=== PATIENT | female | born 1985 | race Caucasian/White ===

== ENCOUNTER 2019-04-21 15:13 | Emergency (ER) | payer OTHER, MEDICAID ==
[2019-04-21] MEDS ORDERED: Sodium Chloride 0.9% 1,000 ML IV ONE (16:00)
--- NOTE | 2019-04-21 16:03 | EDM.PDOC ---
ED HPI GENERAL MEDICAL PROBLEM - General Chief Complaint: Gastrointestinal Problem Stated Complaint: VOMITING/FEELING RUNDOWN Time Seen by Provider: 04/21/19 15:31 Source of Information: Reports: Patient History Limitations: Reports: No Limitations - History of Present Illness INITIAL COMMENTS - FREE TEXT/NARRATIVE: HISTORY AND PHYSICAL: History of present illness: Patient is a 33-year-old female who presents to the ED today with concern of vomiting and diarrhea over the past 1 week. Patient states that the vomiting is not consistent and she has not thrown up today but seems to be every other day that she will throw up. Patient states she has had about 6 episodes of a small amount of watery diarrhea daily over the past 1 week. Patient denies any recent antibiotic use. Patient states she does have a history of opioid abuse but has been clean for quite some time. She states that she was with the Suboxone program but recently just stopped this 1 month ago and has been sober since. Patient states she also quit drinking alcohol 1 month ago. Patient denies any abdominal pain or any other symptoms or concerns. Patient denies fever, chills, chest pain, shortness of breath, or cough. Denies headache, neck stiff ness, change in vision, syncope, or near syncope. Denies nausea, abdominal pain, or dysuria. Has not noted any blood in urine or stool. Patient has been eating and drinking appropriately. Review of systems: As per history of present illness and below otherwise all systems reviewed and negative. Past medical history: As per history of present illness and as reviewed below otherwise noncontributory. Surgical history: As per history of present illness and as reviewed below otherwise noncontributory. Social history: See social history for further information Family history: As per history of present illness and as reviewed below otherwise noncontributory. Physical exam: General: Patient is alert, oriented, and in no acute distress. Patient sitting comfortably on exam table. HEENT: Atraumatic, normocephalic, pupils equal and reactive bilaterally, negative for conjunctival pallor or scleral icterus, mucous membranes moist, TMs normal bilaterally, throat clear, neck supple, nontender, trachea midline. No drooling or trismus noted. No meningeal signs. No hot potato voice noted. Lungs: Clear to auscultation, breath sounds equal bilaterally, chest nontender. Heart: S1S2, regular rate and rhythm without overt murmur Abdomen: Soft, nondistended, nontender. Negative for masses or hepatosplenomegaly. Negative for costovertebral tenderness. Pelvis: Stable nontender. Genitourinary: Deferred. Rectal: Deferred. Skin: Intact, warm, dry. No lesions or rashes noted. Extremities: Atraumatic, negative for cords or calf pain. Neurovascular unremarkable. Neuro: Awake, alert, oriented. Cranial nerves II through XII unremarkable. Cerebellum unremarkable. Motor and sensory unremarkable throughout. Exam nonfocal. Notes: Patient has not had any episodes of vomiting in the ED today. Patient able to tolerate p.o. intake in the ED without vomiting. Patient was unable to leave a stool sample today in the ED. Stool collection supplies have been provided to her to provide at home and return to our lab. Voices understanding and is agreeable to plan of care. Denies any further questions or concerns at this time. Diagnostics: CBC, CMP, UA, Uhcg, Lipase, Stool culture/shiga/campy, Ova and parasite, Cdiff Therapeutics: NS Prescription: Stool studies Impression: H/O vomiting H/O diarrhea Plan: 1. Stool collection supplies have been provided to you. Once you are able to leave a sample at home, return this to our lab. 2. Encourage small but frequent sips of fluid to prevent dehydration. 3. Follow-up with a primary care provider as discussed. Return to the ED as needed and as discussed. Definitive disposition and diagnosis as appropriate pending reevaluation and review of above. left flank pain Pain Score (Numeric/FACES): 2 - Related Data Allergies Allergy/AdvReac Type Severity Reaction Status Date / Time No Known Allergies Allergy Verified 04/21/19 15:26 Home Meds: Home Meds Dextroamphetamine/Amphetamine [Adderall] 45 mg PO DAILY 04/21/19 [History] QUEtiapine [SEROquel] 50 mg PO BEDTIME 04/21/19 [History] Past Medical History Psychiatric History: Reports: Anxiety, Depression, Other (See Below) Other Psychiatric History: Reccovering Opiod addict, 30 days clean. had been clean for 3 years and had relapse - Infectious Disease History Infectious Disease History: Reports: Chicken Pox Social & Family History - Family History Family Medical History: Noncontributory - Tobacco Use Smoking Status *Q: Current Every Day Smoker Years of Tobacco use: 18 Packs/Tins Daily: 0.1 - Recreational Drug Use Recreational Drug Use: No ED ROS GENERAL - Review of Systems Review Of Systems: Comprehensive ROS is negative, except as noted in HPI. ED EXAM, GENERAL - Physical Exam Exam: See Below (see dictation) Course - Vital Signs Last Recorded V/S: Last Vital Signs Temp 97.5 F 04/21/19 15:23 Pulse 116 H 04/21/19 15:23 Resp 18 04/21/19 15:23 BP 120/89 04/21/19 15:23 Pulse Ox 98 04/21/19 15:23 - Orders/Labs/Meds Orders: Active Orders 24 hr Category Date Time Status C DIFFICILE AG/TOXIN W/REFLEX [RM] Stat Lab 04/21/19 15:38 Ordered OVA & PARASITES BY IMMUNOASSAY [MREF] Stat Lab 04/21/19 15:38 Ordered STOOL CULTURE/SHIGA TOXIN [MREF] Stat Lab 04/21/19 15:38 Ordered Labs: Laboratory Tests 04/21/19 04/21/19 04/21/19 Range/Units 15:45 15:45 16:19 WBC 11.23 H (4.0-11.0) K/uL RBC 4.67 (4.30-5.90) M/uL Hgb 14.6 (12.0-16.0) g/dL Hct 41.6 (36.0-46.0) % MCV 89.1 (80.0-98.0) fL MCH 31.3 (27.0-32.0) pg MCHC 35.1 (31.0-37.0) g/dL RDW Std Deviation 37.3 (28.0-62.0) fl RDW Coeff of Alejandro 12 (11.0-15.0) % Plt Count 242 (150-400) K/uL MPV 10.90 (7.40-12.00) fL Neut % (Auto) 57.7 (48.0-80.0) % Lymph % (Auto) 34.5 (16.0-40.0) % Clayton % (Auto) 6.3 (0.0-15.0) % Eos % (Auto) 1.3 (0.0-7.0) % Baso % (Auto) 0.2 (0.0-1.5) % Neut # (Auto) 6.5 H (1.4-5.7) K/uL Lymph # (Auto) 3.9 H (0.6-2.4) K/uL Clayton # (Auto) 0.7 (0.0-0.8) K/uL Eos # (Auto) 0.2 (0.0-0.7) K/uL Baso # (Auto) 0.0 (0.0-0.1) K/uL Sodium (136-145) mmol/L Potassium (3.5-5.1) mmol/L Chloride (98-107) mmol/L Carbon Dioxide (21.0-32.0) mmol/L BUN (7.0-18.0) mg/dL Creatinine (0.6-1.0) mg/dL Est Cr Clr Drug Dosing mL/min Estimated GFR (MDRD) ml/min Glucose (74-106) mg/dL Calcium (8.5-10.1) mg/dL Total Bilirubin (0.2-1.0) mg/dL AST (15-37) IU/L ALT (14-63) IU/L Alkaline Phosphatase (46-116) U/L Total Protein (6.4-8.2) g/dL Albumin (3.4-5.0) g/dL Globulin (2.6-4.0) g/dL Albumin/Globulin Ratio (0.9-1.6) Lipase (73-393) U/L Urine Color YELLOW Urine Appearance CLEAR Urine pH 6.0 (5.0-8.0) Ur Specific Lamont >= 1.030 (1.001-1.035) Urine Protein NEGATIVE (NEGATIVE) mg/dL Urine Glucose (UA) NEGATIVE (NEGATIVE) mg/dL Urine Ketones NEGATIVE (NEGATIVE) mg/dL Urine Occult Blood NEGATIVE (NEGATIVE) Urine Nitrite NEGATIVE (NEGATIVE) Urine Bilirubin NEGATIVE (NEGATIVE) Urine Urobilinogen 0.2 (<2.0) EU/dL Ur Leukocyte Esterase NEGATIVE (NEGATIVE) Urine HCG, Qual NEGATIVE (NEGATIVE) 04/21/19 Range/Units 16:19 WBC (4.0-11.0) K/uL RBC (4.30-5.90) M/uL Hgb (12.0-16.0) g/dL Hct (36.0-46.0) % MCV (80.0-98.0) fL MCH (27.0-32.0) pg MCHC (31.0-37.0) g/dL RDW Std Deviation (28.0-62.0) fl RDW Coeff of Alejandro (11.0-15.0) % Plt Count (150-400) K/uL MPV (7.40-12.00) fL Neut % (Auto) (48.0-80.0) % Lymph % (Auto) (16.0-40.0) % Clayton % (Auto) (0.0-15.0) % Eos % (Auto) (0.0-7.0) % Baso % (Auto) (0.0-1.5) % Neut # (Auto) (1.4-5.7) K/uL Lymph # (Auto) (0.6-2.4) K/uL Clayton # (Auto) (0.0-0.8) K/uL Eos # (Auto) (0.0-0.7) K/uL Baso # (Auto) (0.0-0.1) K/uL Sodium 142 (136-145) mmol/L Potassium 3.6 (3.5-5.1) mmol/L Chloride 102 (98-107) mmol/L Carbon Dioxide 27.4 (21.0-32.0) mmol/L BUN 11 (7.0-18.0) mg/dL Creatinine 0.8 (0.6-1.0) mg/dL Est Cr Clr Drug Dosing 85.56 mL/min Estimated GFR (MDRD) > 60.0 ml/min Glucose 96 (74-106) mg/dL Calcium 10.2 H (8.5-10.1) mg/dL Total Bilirubin 0.3 (0.2-1.0) mg/dL AST 14 L (15-37) IU/L ALT 23 (14-63) IU/L Alkaline Phosphatase 60 (46-116) U/L Total Protein 8.1 (6.4-8.2) g/dL Albumin 4.0 (3.4-5.0) g/dL Globulin 4.1 H (2.6-4.0) g/dL Albumin/Globulin Ratio 1.0 (0.9-1.6) Lipase 256 (73-393) U/L Urine Color Urine Appearance Urine pH (5.0-8.0) Ur Specific Lamont (1.001-1.035) Urine Protein (NEGATIVE) mg/dL Urine Glucose (UA) (NEGATIVE) mg/dL Urine Ketones (NEGATIVE) mg/dL Urine Occult Blood (NEGATIVE) Urine Nitrite (NEGATIVE) Urine Bilirubin (NEGATIVE) Urine Urobilinogen (<2.0) EU/dL Ur Leukocyte Esterase (NEGATIVE) Urine HCG, Qual (NEGATIVE) Meds: Medications Discontinued Medications Generic Name Dose Route Start Last Admin Trade Name Freq PRN Reason Stop Dose Admin Sodium Chloride 1,000 mls @ 999 mls/hr 04/21/19 16:00 04/21/19 16:21 Normal Saline IV 04/21/19 17:00 999 mls/hr STAT ONE Administration Ondansetron HCl 4 mg 04/21/19 16:00 04/21/19 16:50 Zofran IVPUSH 04/21/19 16:01 Not Given ONETIME ONE Departure - Departure Time of Disposition: 17:13 Disposition: Home, Self-Care 01 Clinical Impression: History of vomiting, History of diarrhea - Discharge Information Referrals: Raine Funk, ESTHETICIAN/SPA COORDINATOR [Primary Care Provider] - Forms: ED Department Discharge Additional Instructions: The following information is given to patients seen in the emergency department who are being discharged to home. This information is to outline your options for follow-up care. We provide all patients seen in our emergency department with a follow-up referral. The need for follow-up, as well as the timing and circumstances, are variable depending upon the specifics of your emergency department visit. If you don't have a primary care physician on staff, we will provide you with a referral. We always advise you to contact your personal physician following an emergency department visit to inform them of the circumstance of the visit and for follow-up with them and/or the need for any referrals to a consulting specialist. The emergency department will also refer you to a specialist when appropriate. This referral assures that you have the opportunity for follow-up care with a specialist. All of these measure are taken in an effort to provide you with optimal care, which includes your follow-up. Under all circumstances we always encourage you to contact your private physician who remains a resource for coordinating your care. When calling for follow-up care, please make the office aware that this follow-up is from your recent emergency room visit. If for any reason you are refused follow-up, please contact the [facility] Emergency Department at and asked to speak to the emergency department charge nurse. [facility] [address] [place] [address] [facility] [address] [place] [address] 1. Stool collection supplies have been provided to you. Once you are able to leave a sample at home, return this to our lab. 2. Encourage small but frequent sips of fluid to prevent dehydration. 3. Follow-up with a primary care provider as discussed. Return to the ED as needed and as discussed. Sepsis Event Note - Evaluation Sepsis Screening Result: No Definite Risk - Focused Exam Vital Signs: Vital Signs Temp Pulse Resp BP Pulse Ox 04/21/19 15:23 97.5 F 116 H 18 120/89 98 Date Exam was Performed: 04/21/19 Time Exam was Performed: 17:11 - My Orders Last 24 Hours: My Active Orders 04/21/19 15:38 C DIFFICILE AG/TOXIN W/REFLEX [RM] Stat OVA & PARASITES BY IMMUNOASSAY [MREF] Stat STOOL CULTURE/SHIGA TOXIN [MREF] Stat - Assessment/Plan Last 24 Hours: My Active Orders 04/21/19 15:38 C DIFFICILE AG/TOXIN W/REFLEX [RM] Stat OVA & PARASITES BY IMMUNOASSAY [MREF] Stat STOOL CULTURE/SHIGA TOXIN [MREF] Stat
[2019-04-21] MEDS: Ondansetron 4 MG/2 ML SDV IVPUSH ONE ×2 (16:21→16:50)
[2019-04-21 17:04] LABS: BLOOD UREA NITROGEN,BUN 11 mg/dL (7.0-18.0); CARBON DIOXIDE,CO2 27.4 mmol/L (21.0-32.0); CHLORIDE,CL 102 mmol/L (98-107); GLUCOSE RANDOM 96 mg/dL (74-106); LIPASE 256 U/L (73-393); POTASSIUM,K 3.6 mmol/L (3.5-5.1); SODIUM,NA 142 mmol/L (136-145)
== END 2019-04-21 17:25 | disposition home or self-care (01) ==
LOC: MW.ED 15:13
DX: R11.10 Vomiting, unspecified (principal); R19.7 Diarrhea, unspecified; F32.9 Major depressive disorder, single episode, unspecified; F17.210 Nicotine dependence, cigarettes, uncomplicated; Z79.899 Other long term (current) drug therapy
CPT/HCPCS: 36415; 80053; 81003; 81025; 83690; 85025; 96360; 99284; J7030; 99283; J2405

== ENCOUNTER 2021-03-24 19:53 | Inpatient (IN) | payer OTHER ==
[2021-03-24] MEDS ORDERED: Water For Irrigation,Sterile 1,000 ML Container IRR PRN (20:29)
[2021-03-24] MEDS ORDERED: Misoprostol 200 MCG Tab PO PRN (20:29)
[2021-03-24] MEDS ORDERED: Nalbuphine 10 MG/1 ML Vial IVPUSH PRN (20:29)
[2021-03-24] MEDS ORDERED: Lidocaine 1% 50 ML MDV INJECT PRN (20:29)
[2021-03-24] MEDS ORDERED: Misoprostol 25 MCG (1/4 of 100 MCG) Tab VAG PRN ×2 (20:29)
[2021-03-24] MEDS ORDERED: Sodium Chloride 0.9% 10 ML Syringe FLUSH PRN (20:29)
[2021-03-24] MEDS ORDERED: Ondansetron 4 MG/2 ML SDV IVPUSH PRN (20:29)
[2021-03-24] MEDS ORDERED: Terbutaline 1 MG/ML SDV SUBCUT PRN (20:29)
[2021-03-24] MEDS ORDERED: Carboprost Tromethamine 250 MCG/1 ML Amp IM PRN (20:29)
[2021-03-24] MEDS ORDERED: Tranexamic Acid 1,000 MG in Sodium Chloride 0.9% 100 ML IV PRN (20:29)
[2021-03-24] MEDS ORDERED: Sodium Chloride 0.9% 20 ML SDV IV PRN (20:29)
[2021-03-24] MEDS ORDERED: Butorphanol 1 MG/ML SDV IVPUSH PRN (20:29)
[2021-03-24] MEDS ORDERED: Methylergonovine 0.2 MG/1 ML Amp IM PRN (20:29)
[2021-03-24] MEDS ORDERED: Oxytocin/0.9 % Sodium Chloride 30 UNIT/500 ML BAG IV SCH (20:30)
[2021-03-25] MEDS: Acetaminophen 325 MG Tab PO PRN ×2 (00:35→04:40)
[2021-03-25] MEDS: Lactated Ringers 1,000 ML IV SCH ×5 (01:18→23:10)
[2021-03-25] MEDS ORDERED: hydrOXYzine HCl 25 MG Tab PO STA (03:51)
[2021-03-25] MEDS ORDERED: Oxytocin/0.9 % Sodium Chloride 30 UNIT/500 ML BAG IV SCH (09:00)
[2021-03-25] MEDS ORDERED: Ropivacaine HCl/PF 100 ML ONE (09:45)
[2021-03-25] MEDS ORDERED: ePHEDrine 50 MG/ML SDV IVPUSH PRN ×2 (10:01)
[2021-03-25] MEDS: Ropivacaine HCl/PF 200 MG in Premix Bag 1 BAG EPIDUR SCH ×2 (16:28→22:54)
[2021-03-26] MEDS ORDERED: hydrOXYzine Pamoate 25 MG Cap PO ONE (02:43)
[2021-03-26] MEDS ORDERED: hydrOXYzine Pamoate 25 MG Cap ONE (02:44)
[2021-03-26] MEDS ORDERED: Witch Hazel Medicated Pads 40/Jar TOP PRN (02:56)
[2021-03-26] MEDS ORDERED: oxyCODONE 5 MG Tab PO PRN (02:56)
[2021-03-26] MEDS ORDERED: Ibuprofen 400 MG Tab PO PRN (02:56)
[2021-03-26] MEDS ORDERED: Benzocaine/Menthol 20%-0.5% Spray 78 GM Cannister TOP PRN (02:56)
[2021-03-26] MEDS ORDERED: Acetaminophen 500 MG Tab PO PRN (02:56)
[2021-03-26] MEDS ORDERED: Bisacodyl 10 MG Supp RECTAL PRN (02:56)
[2021-03-26] MEDS: Docusate Sodium 100 MG Cap PO PRN ×3 (03:27→20:54)
[2021-03-26] MEDS: Ibuprofen 800 MG Tab PO PRN ×3 (03:28→15:17)
[2021-03-26] MEDS: Lanolin 100% Cream 7 GM Tube TOP PRN ×2 (03:30→16:29)
[2021-03-26] MEDS ORDERED: Polyethylene Glycol 3350 Powder 17 GM Packet PO PRN (10:42)
[2021-03-26] MEDS: Acetaminophen 500 MG Tab PO PRN ×2 (14:29→18:34)
[2021-03-27] MEDS: Ibuprofen 800 MG Tab PO PRN (04:49)
[2021-03-27] MEDS: Docusate Sodium 100 MG Cap PO PRN (09:49)
[2021-03-27] MEDS: Acetaminophen 325 MG Tab PO PRN (09:49)
== END 2021-03-27 18:55 | disposition home or self-care (01) | DRG 806 ==
LOC: MW.OBCHECK 19:53 → MW.OB 19:53 → MW.OBCHECK 20:00 → MW.OB 22:18 → OBSVTOIN 03-26 02:11 → MW.OB 03-26 05:47
PROVIDERS: ADMIT Obstetrics & Gynecology; ATTEND Obstetrics & Gynecology
PROC: 10D07Z6 Extraction of Products of Conception, Vacuum, Via Natural or Artificial Opening (ICD-10-PCS; principal; 2021-03-26)
PROC: 0KQM0ZZ Repair Perineum Muscle, Open Approach (ICD-10-PCS; 2021-03-26)
PROC: 10907ZC Drainage of Amniotic Fluid, Therapeutic from Products of Conception, Via Natural or Artificial Opening (ICD-10-PCS; 2021-03-26)
PROC: 3E0P7VZ Introduction of Hormone into Female Reproductive, Via Natural or Artificial Opening (ICD-10-PCS; 2021-03-26)
PROC: 3E033VJ Introduction of Other Hormone into Peripheral Vein, Percutaneous Approach (ICD-10-PCS; 2021-03-26)
PROC: 3E0R3BZ Introduction of Anesthetic Agent into Spinal Canal, Percutaneous Approach (ICD-10-PCS; 2021-03-26)
PROC: 00HU33Z Insertion of Infusion Device into Spinal Canal, Percutaneous Approach (ICD-10-PCS; 2021-03-26)
DX: O36.5930 Maternal care for other known or suspected poor fetal growth, third trimester, not applicable or unspecified (principal); O99.324 Drug use complicating childbirth; Z37.0 Single live birth; F11.20 Opioid dependence, uncomplicated; O99.344 Other mental disorders complicating childbirth; F41.9 Anxiety disorder, unspecified; F32.A Depression, unspecified; O70.1 Second degree perineal laceration during delivery; O77.0 Labor and delivery complicated by meconium in amniotic fluid; Z87.891 Personal history of nicotine dependence; Z3A.39 39 weeks gestation of pregnancy; Z20.822 Contact with and (suspected) exposure to COVID-19
CPT/HCPCS: 36415; 51702; 59025; 59409; 85014; 85018; 85027; 86592; 86850; 86900; 86901; A9270-GY; J2590; J2795; J7120; U0002

== ENCOUNTER 2023-07-21 18:25 | Emergency (ER) | payer MEDICAID ==
[2023-07-21] MEDS: Sodium Chloride 0.9% 1,000 ML IV ONE (18:55)
[2023-07-21] MEDS: Ketorolac 30 MG/ML SDV IVPUSH ONE (19:00)
[2023-07-21] MEDS: Ondansetron 4 MG/2 ML SDV IVPUSH ONE (19:00)
[2023-07-21 19:15] LABS: BASOPHILS ABSOLUTE AUTO 0.02 K/uL (0.00-0.20); BASOPHILS PERCENT AUTO 0.2 % (0.0-1.0); EOSINOPHILS ABSOLUTE AUTO 0.03 K/uL (0.00-0.45); EOSINOPHILS PERCENT AUTO 0.3 % (0.0-6.0); HEMATOCRIT 40.8 % (37.0-47.0); HEMOGLOBIN 14.1 g/dL (12.0-16.0); IMMATURE GRAN ABSOLUTE AUTO 0.02 K/uL (0.00-0.05); IMMATURE GRAN PERCENT AUTO 0.2 % (0.0-0.4); LYMPHOCYTES PERCENT AUTO 26.2 % (24.0-44.0); MEAN CORPUSCULAR HEMOGLOBIN 29.9 pg (28.0-32.0); MEAN CORPUSCULAR HGB CONC 34.6 g/dL (32.0-36.0); MEAN CORPUSCULAR VOLUME 86.4 fL (83.0-99.0); MEAN PLATELET VOLUME 10.2 fL (9.4-12.3); MONOCYTES ABSOLUTE AUTO 0.37 K/uL (0.00-0.80); NEUTROPHILS ABSOLUTE AUTO 6.33 K/uL (1.80-7.70); NEUTROPHILS PERCENT AUTO 69.1 % (41.0-71.0); PLATELET COUNT,PLT 203 K/uL (150-400); RED BLOOD CELL COUNT 4.72 M/uL (4.10-5.30); WHITE BLOOD CELL COUNT,WBC 9.17 K/uL (3.9-11.3)
[2023-07-21 19:41] LABS: ALANINE AMINOTRANSFERASE,ALT 18 IU/L (14-63); ALBUMIN 4.3 g/dL (3.4-5.0); ALKALINE PHOSPHATASE 55 U/L (46-116); ASPARTATE AMNIOTRANSFERASE,AST 16 IU/L (15-37); BILIRUBIN TOTAL 0.6 mg/dL (0.2-1.0); BLOOD UREA NITROGEN,BUN 13 mg/dL (7.0-18.0); CALCIUM 9.4 mg/dL (8.5-10.1); CHLORIDE,CL 100 mmol/L (98-107); CREATININE 1.1 mg/dL (0.6-1.0); EST CRCL DRUG DOSING (CG) 59.29 mL/min; GLUCOSE RANDOM 98 mg/dL (74-106); POTASSIUM,K 3.8 mmol/L (3.5-5.1); PROTEIN TOTAL,TP 8.4 g/dL (6.4-8.2); SODIUM,NA 137 mmol/L (136-145)
[2023-07-21 20:02] LABS: A/G RATIO 1.1 (0.9-1.6); ESTIMATED GFR 66 mL/min (>60)
[2023-07-21] MEDS: Promethazine 25 MG/ML SDV IM ONE (21:05)
== END 2023-07-21 21:15 | disposition home or self-care (01) ==
LOC: MW.ED 18:25
DX: S39.012A Strain of muscle, fascia and tendon of lower back, initial encounter (principal); R07.2 Precordial pain; E03.9 Hypothyroidism, unspecified; Z75.8 Other problems related to medical facilities and other health care; Z79.899 Other long term (current) drug therapy; X50.9XXA Other and unspecified overexertion or strenuous movements or postures, initial encounter
CPT/HCPCS: 36415; 71045; 72131; 80053; 84484; 85025; 93005; 96361; 96372; 96374; 96375; 99285; J1885; J2405; J2550; J7030; 93010; 99284

== ENCOUNTER 2023-08-25 17:02 | Observation (INO) | payer MEDICAID ==
[2023-08-25] MEDS: Sodium Chloride 0.9% 1,000 ML IV STA ×5 (17:31→23:30)
[2023-08-25] MEDS: Promethazine 25 MG/ML SDV IM STA (17:31)
[2023-08-25] MEDS: Sodium Chloride 0.9% 10 ML Syringe FLUSH PRN (17:31)
[2023-08-25 17:32] LABS: BASOPHILS ABSOLUTE AUTO 0.04 K/uL (0.00-0.20); BASOPHILS PERCENT AUTO 0.2 % (0.0-1.0); EOSINOPHILS ABSOLUTE AUTO 0.04 K/uL (0.00-0.45); EOSINOPHILS PERCENT AUTO 0.2 % (0.0-6.0); HEMATOCRIT 38.1 % (37.0-47.0); HEMOGLOBIN 13.2 g/dL (12.0-16.0); IMMATURE GRAN ABSOLUTE AUTO 0.12 K/uL (0.00-0.05); IMMATURE GRAN PERCENT AUTO 0.6 % (0.0-0.4); LYMPHOCYTES ABSOLUTE AUTO 2.05 K/uL (1.00-4.80); MEAN CORPUSCULAR HEMOGLOBIN 29.8 pg (28.0-32.0); MEAN CORPUSCULAR HGB CONC 34.6 g/dL (32.0-36.0); MEAN PLATELET VOLUME 10.1 fL (9.4-12.3); MONOCYTES ABSOLUTE AUTO 1.08 K/uL (0.00-0.80); MONOCYTES PERCENT AUTO 5.8 % (0.0-8.0); NEUTROPHILS ABSOLUTE AUTO 15.39 K/uL (1.80-7.70); NEUTROPHILS PERCENT AUTO 82.2 % (41.0-71.0); PLATELET COUNT,PLT 279 K/uL (150-400); RED BLOOD CELL COUNT 4.43 M/uL (4.10-5.30); WHITE BLOOD CELL COUNT,WBC 18.72 K/uL (3.9-11.3)
[2023-08-25] MEDS: Sodium Chloride 0.9% 2.5 ML Syringe FLUSH PRN (17:32)
[2023-08-25 18:02] LABS: A/G RATIO 1.2 (0.9-1.6); ALBUMIN 4.5 g/dL (3.4-5.0); BILIRUBIN TOTAL 0.6 mg/dL (0.2-1.0); CALCIUM 9.5 mg/dL (8.5-10.1); CARBON DIOXIDE,CO2 21.3 mmol/L (21.0-32.0); CREATININE 1.1 mg/dL (0.6-1.0); EST CRCL DRUG DOSING (CG) 59.29 mL/min; POTASSIUM,K 3.9 mmol/L (3.5-5.1); PROTEIN TOTAL,TP 8.1 g/dL (6.4-8.2)
[2023-08-25] MEDS: Piperacillin/Tazobactam 4.5 GM in Sodium Chloride 0.9% 100 ML IV STA (18:05)
[2023-08-25] MEDS: Ketorolac 30 MG/ML SDV IVPUSH STA (18:05)
[2023-08-25 18:54] LABS: TSH ULTRASENSITIVE 0.54 uIU/mL (0.36-3.74)
[2023-08-25 19:06] LABS: LACTIC ACID 4.7 mmol/L (0.4-2.0)
[2023-08-25] MEDS: Magnesium Sulfate/Water 2 GM in Premix Bag 1 BAG IV STA (19:20)
[2023-08-25 19:37] LABS: APPEARANCE,URINE SLT CLOUDY; BILIRUBIN,URINE NEGATIVE (NEGATIVE); COLOR,URINE YELLOW; GLUCOSE,URINE NEGATIVE (NEGATIVE); KETONES,URINE TRACE mg/dL (NEGATIVE); LEUKOCYTE ESTERASE,URINE NEGATIVE (NEGATIVE); NITRITE,URINE NEGATIVE (NEGATIVE); OCCULT BLOOD,URINE NEGATIVE (NEGATIVE); PH,URINE 8.5 (5.0-8.0); PROTEIN,URINE 30 mg/dL (NEGATIVE); UROBILINOGEN,URINE 0.2 EU/dL (<2.0)
[2023-08-25 19:45] LABS: AMPHETAMINES SCREEN, URINE PRESUMPTIVE POSITIVE (CUTOFF=500); BARBITURATE SCREEN,URINE NEGATIVE (CUTOFF=200); BENZODIAZEPINES SCREEN,URINE PRESUMPTIVE POSITIVE (CUTOFF=150); BUPRENORPHINE SCREEN,URINE PRESUMPTIVE POSITIVE (CUTOFF=10); METHADONE SCREEN, URINE NEGATIVE (CUTOFF=200); METHAMPHETAMINES SCREEN, URINE NEGATIVE (CUTOFF=500); OXYCODONE SCREEN,URINE NEGATIVE (CUT0FF=100); PCP SCREEN,URINE NEGATIVE (CUTOFF=25); THC SCREEN,URINE 20 NG/ML PRESUMPTIVE POSITIVE (CUTOFF=50)
[2023-08-25 19:53] LABS: BACTERIA,URINE FEW (NEGATIVE); EPITHELIAL CELLS,URINE MODERATE (NONE-FEW); MUCUS,URINE LIGHT (NONE-MOD); RBC,URINE 0-2 (0-2/HPF)
[2023-08-25] MEDS: Iopamidol 755 MG/ML 500 ML Multipack Bottle IVPUSH STA (23:16)
[2023-08-26] MEDS: droPERidol 5 MG/2 ML SDV IVPUSH STA ×2 (00:11→00:18)
[2023-08-26 01:01] LABS: BASE EXCESS VENOUS -9.4 (-2.0-3.0); BICARBONATE,VENOUS 17 mEQ/mL (22-28); PCO2 VENOUS 37 mmHG (41-51); PH,VENOUS 7.27 (7.31-7.41)
[2023-08-26 01:04] LABS: PO2 VENOUS < 30 mmHG (35-45)
[2023-08-26 01:06] LABS: BASOPHILS ABSOLUTE AUTO 0.01 K/uL (0.00-0.20); BASOPHILS PERCENT AUTO 0.1 % (0.0-1.0); HEMATOCRIT 34.8 % (37.0-47.0); HEMOGLOBIN 11.7 g/dL (12.0-16.0); IMMATURE GRAN ABSOLUTE AUTO 0.04 K/uL (0.00-0.05); IMMATURE GRAN PERCENT AUTO 0.4 % (0.0-0.4); LYMPHOCYTES ABSOLUTE AUTO 0.79 K/uL (1.00-4.80); LYMPHOCYTES PERCENT AUTO 8.3 % (24.0-44.0); MEAN CORPUSCULAR HEMOGLOBIN 29.8 pg (28.0-32.0); MEAN CORPUSCULAR HGB CONC 33.6 g/dL (32.0-36.0); MEAN CORPUSCULAR VOLUME 88.5 fL (83.0-99.0); MEAN PLATELET VOLUME 10.4 fL (9.4-12.3); MONOCYTES ABSOLUTE AUTO 0.24 K/uL (0.00-0.80); MONOCYTES PERCENT AUTO 2.5 % (0.0-8.0); NEUTROPHILS ABSOLUTE AUTO 8.42 K/uL (1.80-7.70); NEUTROPHILS PERCENT AUTO 88.7 % (41.0-71.0); PLATELET COUNT,PLT 165 K/uL (150-400); RED BLOOD CELL COUNT 3.93 M/uL (4.10-5.30)
[2023-08-26 01:32] LABS: BLOOD UREA NITROGEN,BUN 10 mg/dL (7.0-18.0); CALCIUM 7.1 mg/dL (8.5-10.1); CARBON DIOXIDE,CO2 15.3 mmol/L (21.0-32.0); CHLORIDE,CL 104 mmol/L (98-107); CREATININE 0.9 mg/dL (0.6-1.0); EST CRCL DRUG DOSING (CG) 72.47 mL/min; GLUCOSE RANDOM 82 mg/dL (74-106); POTASSIUM,K 3.6 mmol/L (3.5-5.1); SODIUM,NA 137 mmol/L (136-145)
[2023-08-26 01:33] LABS: ESTIMATED GFR 83 mL/min (>60)
[2023-08-26] MEDS: Piperacillin/Tazobactam 4.5 GM in Sodium Chloride 0.9% 100 ML IV SCH (01:59)
[2023-08-26] MEDS ORDERED: Levothyroxine 25 MCG Tab PO SCH (03:15)
[2023-08-26] MEDS ORDERED: Ondansetron 4 MG/2 ML SDV IVPUSH PRN (03:39)
[2023-08-26] MEDS: Pantoprazole 40 MG in Sodium Chloride 0.9% 10 ML IVPUSH SCH (04:22)
[2023-08-26] MEDS: Sodium Chloride 0.9% 1,000 ML IV SCH (04:22)
[2023-08-26 04:40] LABS: BASOPHILS ABSOLUTE AUTO 0.01 K/uL (0.00-0.20); BASOPHILS PERCENT AUTO 0.1 % (0.0-1.0); HEMATOCRIT 33.8 % (37.0-47.0); HEMOGLOBIN 11.6 g/dL (12.0-16.0); IMMATURE GRAN ABSOLUTE AUTO 0.04 K/uL (0.00-0.05); IMMATURE GRAN PERCENT AUTO 0.4 % (0.0-0.4); LYMPHOCYTES ABSOLUTE AUTO 1.27 K/uL (1.00-4.80); LYMPHOCYTES PERCENT AUTO 11.2 % (24.0-44.0); MEAN CORPUSCULAR HEMOGLOBIN 30.1 pg (28.0-32.0); MEAN CORPUSCULAR HGB CONC 34.3 g/dL (32.0-36.0); MEAN CORPUSCULAR VOLUME 87.6 fL (83.0-99.0); MEAN PLATELET VOLUME 10.1 fL (9.4-12.3); MONOCYTES ABSOLUTE AUTO 0.53 K/uL (0.00-0.80); MONOCYTES PERCENT AUTO 4.7 % (0.0-8.0); NEUTROPHILS ABSOLUTE AUTO 9.51 K/uL (1.80-7.70); NEUTROPHILS PERCENT AUTO 83.6 % (41.0-71.0); PLATELET COUNT,PLT 196 K/uL (150-400); RED BLOOD CELL COUNT 3.86 M/uL (4.10-5.30); WHITE BLOOD CELL COUNT,WBC 11.36 K/uL (3.9-11.3)
[2023-08-26 05:08] LABS: A/G RATIO 1.2 (0.9-1.6); ALBUMIN 3.6 g/dL (3.4-5.0); BILIRUBIN TOTAL 0.7 mg/dL (0.2-1.0); CALCIUM 7.2 mg/dL (8.5-10.1); CARBON DIOXIDE,CO2 21.5 mmol/L (21.0-32.0); CREATININE 0.9 mg/dL (0.6-1.0); EST CRCL DRUG DOSING (CG) 72.47 mL/min; MAGNESIUM 1.8 mg/dL (1.8-2.4); PHOSPHORUS 2.8 mg/dL (2.6-4.7); POTASSIUM,K 3.7 mmol/L (3.5-5.1); PROTEIN TOTAL,TP 6.6 g/dL (6.4-8.2)
[2023-08-26 05:11] LABS: LACTIC ACID 2.1 mmol/L (0.4-2.0)
[2023-08-26] MEDS: Levothyroxine 25 MCG Tab PO SCH (07:35)
[2023-08-27] MEDS ORDERED: Levothyroxine 75 MCG Tab PO SCH (07:30)
== END 2023-08-26 13:50 ==
LOC: MW.ED 17:02 → MW.MS 08-26 01:46
PROVIDERS: ADMIT Internal Medicine; ATTEND Internal Medicine
DX: E87.20 Acidosis, unspecified (principal); K29.00 Acute gastritis without bleeding; F41.9 Anxiety disorder, unspecified; F32.A Depression, unspecified; E05.90 Thyrotoxicosis, unspecified without thyrotoxic crisis or storm; Z79.899 Other long term (current) drug therapy; Z79.890 Hormone replacement therapy
CPT/HCPCS: 36415; 70450; 71260; 74177; 80048; 80053; 80305; 80307; 81001; 82140; 82550; 82803; 83605; 83690; 83735; 84100; 84443; 84484; 84703; 85025; 87040; 93005; 96361; 96365; 96367; 96372; 96375; 96376; 99285; C9113; J1790; J1885; J2543; J2550; J3360; J3475; J3490; J7030; Q9967; 93010; 96366; 99284; G0378

== ENCOUNTER 2023-10-25 23:38 | Emergency (ER) | payer MEDICAID ==
[2023-10-26] MEDS: Promethazine 25 MG/ML SDV IM ONE (00:24)
[2023-10-26] MEDS: Sodium Chloride 0.9% 2.5 ML Syringe FLUSH PRN (00:28)
[2023-10-26] MEDS: Ketorolac 60 MG/2 ML SDV IVPUSH ONE (00:28)
[2023-10-26] MEDS: Sodium Chloride 0.9% 10 ML Syringe FLUSH PRN (00:28)
[2023-10-26] MEDS: Sodium Chloride 0.9% 1,000 ML IV ONE (00:28)
[2023-10-26 00:29] LABS: BASOPHILS ABSOLUTE AUTO 0.04 K/uL (0.00-0.20); BASOPHILS PERCENT AUTO 0.2 % (0.0-1.0); EOSINOPHILS ABSOLUTE AUTO 0.08 K/uL (0.00-0.45); EOSINOPHILS PERCENT AUTO 0.4 % (0.0-6.0); HEMATOCRIT 39.9 % (37.0-47.0); HEMOGLOBIN 13.8 g/dL (12.0-16.0); IMMATURE GRAN ABSOLUTE AUTO 0.09 K/uL (0.00-0.05); IMMATURE GRAN PERCENT AUTO 0.5 % (0.0-0.4); LYMPHOCYTES ABSOLUTE AUTO 4.01 K/uL (1.00-4.80); LYMPHOCYTES PERCENT AUTO 20.7 % (24.0-44.0); MEAN CORPUSCULAR HEMOGLOBIN 29.8 pg (28.0-32.0); MEAN CORPUSCULAR HGB CONC 34.6 g/dL (32.0-36.0); MEAN CORPUSCULAR VOLUME 86.2 fL (83.0-99.0); MEAN PLATELET VOLUME 10.8 fL (9.4-12.3); MONOCYTES ABSOLUTE AUTO 1.17 K/uL (0.00-0.80); NEUTROPHILS ABSOLUTE AUTO 13.95 K/uL (1.80-7.70); NEUTROPHILS PERCENT AUTO 72.2 % (41.0-71.0); PLATELET COUNT,PLT 327 K/uL (150-400); RED BLOOD CELL COUNT 4.63 M/uL (4.10-5.30); WHITE BLOOD CELL COUNT,WBC 19.34 K/uL (3.9-11.3)
[2023-10-26] MEDS: LORazepam 2 MG/ML SDV IVPUSH ONE (00:35)
[2023-10-26 00:40] LABS: A/G RATIO 1.2 (0.9-1.6); ALBUMIN 4.5 g/dL (3.4-5.0); BILIRUBIN TOTAL 0.3 mg/dL (0.2-1.0); CALCIUM 9.8 mg/dL (8.5-10.1); CREATININE 1.1 mg/dL (0.6-1.0); EST CRCL DRUG DOSING (CG) 59.29 mL/min; POTASSIUM,K 3.2 mmol/L (3.5-5.1); PROTEIN TOTAL,TP 8.2 g/dL (6.4-8.2)
[2023-10-26] MEDS: Iopamidol 755 MG/ML 500 ML Multipack Bottle IVPUSH ONE (01:13)
[2023-10-26 02:01] LABS: APPEARANCE,URINE CLEAR; BILIRUBIN,URINE NEGATIVE (NEGATIVE); COLOR,URINE YELLOW; GLUCOSE,URINE NEGATIVE (NEGATIVE); KETONES,URINE 15 mg/dL (NEGATIVE); LEUKOCYTE ESTERASE,URINE NEGATIVE (NEGATIVE); NITRITE,URINE NEGATIVE (NEGATIVE); OCCULT BLOOD,URINE TRACE-LYSED (NEGATIVE); PROTEIN,URINE NEGATIVE (NEGATIVE); UROBILINOGEN,URINE 0.2 EU/dL (<2.0)
[2023-10-26 02:29] LABS: BACTERIA,URINE RARE (NEGATIVE); EPITHELIAL CELLS,URINE MODERATE (NONE-FEW); RBC,URINE 0-1 (0-2/HPF); WBC,URINE 0-3 (0-5/HPF)
== END 2023-10-26 02:20 | disposition home or self-care (01) ==
LOC: MW.ED 23:38
DX: K59.00 Constipation, unspecified (principal); E05.90 Thyrotoxicosis, unspecified without thyrotoxic crisis or storm; Z79.899 Other long term (current) drug therapy; Z75.8 Other problems related to medical facilities and other health care
CPT/HCPCS: 36415; 74177; 80053; 81001; 83690; 84703; 85025; 96361; 96372; 96374; 96375; 99284; J1885; J2060; J2550; J3490; J7030; Q9967

== ENCOUNTER 2023-10-26 21:00 | Emergency (ER) | payer MEDICAID ==
[2023-10-26] MEDS: LORazepam 1 MG Tab PO ONE (21:33)
[2023-10-26] MEDS: hydrOXYzine HCl 25 MG Tab PO ONE (22:08)
[2023-10-26] MEDS: Ondansetron 4 MG Tab.DIS PO ONE (22:19)
[2023-10-26] MEDS: Magnesium Oxide 400 MG Tab PO ONE (22:19)
== END 2023-10-26 22:21 | disposition home or self-care (01) ==
LOC: MW.ED 21:00
DX: F41.9 Anxiety disorder, unspecified (principal); Z79.899 Other long term (current) drug therapy
CPT/HCPCS: 99283; A9270

== ENCOUNTER 2023-12-18 14:21 | Emergency (ER) | payer MEDICAID ==
[2023-12-18] MEDS: Sodium Chloride 0.9% 1,000 ML IV ONE (14:56)
[2023-12-18] MEDS: Ondansetron 4 MG/2 ML SDV IVPUSH ONE (14:56)
[2023-12-18] MEDS: Ketorolac 30 MG/ML SDV IVPUSH ONE (14:56)
[2023-12-18] MEDS: LORazepam 2 MG/ML SDV IVPUSH ONE (14:57)
[2023-12-18] MEDS: Alum Hydrox/Mag Hydrox/Simeth 15 ML, Lidocaine 2% 5 ML PO ONE (15:04)
[2023-12-18 15:05] LABS: BASOPHILS ABSOLUTE AUTO 0.03 K/uL (0.00-0.20); BASOPHILS PERCENT AUTO 0.2 % (0.0-1.0); EOSINOPHILS ABSOLUTE AUTO 0.01 K/uL (0.00-0.45); EOSINOPHILS PERCENT AUTO 0.1 % (0.0-6.0); HEMATOCRIT 35.3 % (37.0-47.0); HEMOGLOBIN 12.6 g/dL (12.0-16.0); IMMATURE GRAN ABSOLUTE AUTO 0.08 K/uL (0.00-0.05); IMMATURE GRAN PERCENT AUTO 0.5 % (0.0-0.4); LYMPHOCYTES ABSOLUTE AUTO 1.08 K/uL (1.00-4.80); LYMPHOCYTES PERCENT AUTO 6.6 % (24.0-44.0); MEAN CORPUSCULAR HEMOGLOBIN 29.8 pg (28.0-32.0); MEAN CORPUSCULAR HGB CONC 35.7 g/dL (32.0-36.0); MEAN CORPUSCULAR VOLUME 83.5 fL (83.0-99.0); MEAN PLATELET VOLUME 10.1 fL (9.4-12.3); MONOCYTES ABSOLUTE AUTO 0.75 K/uL (0.00-0.80); MONOCYTES PERCENT AUTO 4.6 % (0.0-8.0); NEUTROPHILS ABSOLUTE AUTO 14.39 K/uL (1.80-7.70); PLATELET COUNT,PLT 270 K/uL (150-400); RED BLOOD CELL COUNT 4.23 M/uL (4.10-5.30); WHITE BLOOD CELL COUNT,WBC 16.34 K/uL (3.9-11.3)
[2023-12-18 15:33] LABS: LACTIC ACID 1.7 mmol/L (0.4-2.0)
[2023-12-18 15:36] LABS: A/G RATIO 1.2 (0.9-1.6); ALBUMIN 4.3 g/dL (3.4-5.0); CARBON DIOXIDE,CO2 19.6 mmol/L (21.0-32.0); CREATININE 1.1 mg/dL (0.6-1.0); EST CRCL DRUG DOSING (CG) 59.29 mL/min; MAGNESIUM 1.4 mg/dL (1.8-2.4); POTASSIUM,K 3.5 mmol/L (3.5-5.1); PROTEIN TOTAL,TP 7.8 g/dL (6.4-8.2); TSH ULTRASENSITIVE 0.4 uIU/mL (0.36-3.74)
[2023-12-18] MEDS: Magnesium Oxide 400 MG Tab PO ONE (16:31)
[2023-12-18 16:42] LABS: APPEARANCE,URINE CLOUDY; BILIRUBIN,URINE NEGATIVE (NEGATIVE); COLOR,URINE YELLOW; GLUCOSE,URINE NEGATIVE (NEGATIVE); KETONES,URINE >=80 mg/dL (NEGATIVE); LEUKOCYTE ESTERASE,URINE NEGATIVE (NEGATIVE); NITRITE,URINE NEGATIVE (NEGATIVE); OCCULT BLOOD,URINE MODERATE (NEGATIVE); PH,URINE 8.5 (5.0-8.0); PROTEIN,URINE TRACE mg/dL (NEGATIVE); UROBILINOGEN,URINE 0.2 EU/dL (<2.0)
[2023-12-18 16:55] LABS: AMORPHOUS SEDIMENT,URINE MANY (NEGATIVE); BACTERIA,URINE FEW (NEGATIVE); EPITHELIAL CELLS,URINE FEW (NONE-FEW)
[2023-12-18] MEDS: Ondansetron 4 MG Tab.DIS PO ONE (17:26)
[2023-12-18 18:12] LABS: AMPHETAMINES SCREEN, URINE PRESUMPTIVE POSITIVE (CUTOFF=500); BARBITURATE SCREEN,URINE NEGATIVE (CUTOFF=200); BENZODIAZEPINES SCREEN,URINE PRESUMPTIVE POSITIVE (CUTOFF=150); BUPRENORPHINE SCREEN,URINE PRESUMPTIVE POSITIVE (CUTOFF=10); METHADONE SCREEN, URINE NEGATIVE (CUTOFF=200); METHAMPHETAMINES SCREEN, URINE NEGATIVE (CUTOFF=500); OXYCODONE SCREEN,URINE NEGATIVE (CUT0FF=100); PCP SCREEN,URINE NEGATIVE (CUTOFF=25); THC SCREEN,URINE 20 NG/ML PRESUMPTIVE POSITIVE (CUTOFF=50)
== END 2023-12-18 17:34 | disposition home or self-care (01) ==
LOC: MW.ED 14:21
DX: K52.9 Noninfective gastroenteritis and colitis, unspecified (principal); E86.0 Dehydration; Z79.899 Other long term (current) drug therapy
CPT/HCPCS: 36415; 80053; 80305; 81001; 83605; 83690; 83735; 84443; 84703; 85025; 93005; 96361; 96374; 96375; 99284; A9270; J1885; J2060; J2405; J7030

== ENCOUNTER 2024-01-03 23:58 | Emergency (ER) | payer OTHER ==
[2024-01-04] MEDS: Morphine 4 MG/ML Syringe IVPUSH ONE (00:22)
[2024-01-04] MEDS: Ketorolac 30 MG/ML SDV IVPUSH ONE (00:22)
[2024-01-04 00:24] LABS: APPEARANCE,URINE CLEAR; BILIRUBIN,URINE NEGATIVE (NEGATIVE); COLOR,URINE YELLOW; GLUCOSE,URINE NEGATIVE (NEGATIVE); KETONES,URINE 15 mg/dL (NEGATIVE); LEUKOCYTE ESTERASE,URINE NEGATIVE (NEGATIVE); NITRITE,URINE NEGATIVE (NEGATIVE); OCCULT BLOOD,URINE NEGATIVE (NEGATIVE); PH,URINE >= 9.0 (5.0-8.0); PROTEIN,URINE 30 mg/dL (NEGATIVE); UROBILINOGEN,URINE 0.2 EU/dL (<2.0)
[2024-01-04 00:32] LABS: BACTERIA,URINE FEW (NEGATIVE); EPITHELIAL CELLS,URINE FEW (NONE-FEW); RBC,URINE NONE SEEN (0-2/HPF); WBC,URINE 0-2 (0-5/HPF)
[2024-01-04 00:45] LABS: A/G RATIO 1.1 (0.9-1.6); ALBUMIN 4.4 g/dL (3.4-5.0); BILIRUBIN TOTAL 0.7 mg/dL (0.2-1.0); CALCIUM 9.5 mg/dL (8.5-10.1); CARBON DIOXIDE,CO2 24.1 mmol/L (21.0-32.0); CREATININE 1.1 mg/dL (0.6-1.0); EST CRCL DRUG DOSING (CG) 59.29 mL/min; POTASSIUM,K 3.6 mmol/L (3.5-5.1); PROTEIN TOTAL,TP 8.3 g/dL (6.4-8.2)
[2024-01-04 00:48] LABS: BASOPHILS ABSOLUTE AUTO 0.01 K/uL (0.00-0.20); BASOPHILS PERCENT AUTO 0.1 % (0.0-1.0); HEMATOCRIT 40.9 % (37.0-47.0); HEMOGLOBIN 14.7 g/dL (12.0-16.0); IMMATURE GRAN ABSOLUTE AUTO 0.03 K/uL (0.00-0.05); IMMATURE GRAN PERCENT AUTO 0.3 % (0.0-0.4); LYMPHOCYTES ABSOLUTE AUTO 1.39 K/uL (1.00-4.80); LYMPHOCYTES PERCENT AUTO 14.2 % (24.0-44.0); MEAN CORPUSCULAR HEMOGLOBIN 30.1 pg (28.0-32.0); MEAN CORPUSCULAR HGB CONC 35.9 g/dL (32.0-36.0); MEAN CORPUSCULAR VOLUME 83.6 fL (83.0-99.0); MEAN PLATELET VOLUME 10.5 fL (9.4-12.3); MONOCYTES ABSOLUTE AUTO 0.45 K/uL (0.00-0.80); MONOCYTES PERCENT AUTO 4.6 % (0.0-8.0); NEUTROPHILS ABSOLUTE AUTO 7.93 K/uL (1.80-7.70); NEUTROPHILS PERCENT AUTO 80.8 % (41.0-71.0); PLATELET COUNT,PLT 241 K/uL (150-400); RED BLOOD CELL COUNT 4.89 M/uL (4.10-5.30); WHITE BLOOD CELL COUNT,WBC 9.81 K/uL (3.9-11.3)
[2024-01-04] MEDS: droPERidol 5 MG/2 ML SDV IVPUSH ONE (01:00)
== END 2024-01-04 02:00 | disposition home or self-care (01) ==
LOC: MW.ED 23:58
DX: R10.9 Unspecified abdominal pain (principal); E05.90 Thyrotoxicosis, unspecified without thyrotoxic crisis or storm; Z79.899 Other long term (current) drug therapy; Z79.890 Hormone replacement therapy; Z79.891 Long term (current) use of opiate analgesic
CPT/HCPCS: 36415; 74176; 80053; 81001; 81025; 83690; 85025; 96374; 96375; 99284; J1790; J1885; J2270